=== PATIENT | male | born 1950 | race Caucasian/White ===

== ENCOUNTER 2020-04-26 08:05 | Observation (INO) | payer MEDICARE, OTHER ==
--- NOTE | 2020-04-26 08:06 | NUR ---
PPT TO ROOM VIA WC WITH INITIAL SOMPLAINTS OF UNRESOLVED SCIATIC PAIN. PT STATES "I AM ALSO HERE BECAUSE I HAD CHEST PRESSURE AT 0400 THIS AM". SKIN PWD IN NO DISTRESS, RESP EVEN ADN UNLABORED. NST ON MONITOR.
[2020-04-26 08:35] LABS: HEMOGLOBIN 14.2 g/dl (14.0-18.0); IMMATURE GRANULOCYTES 2.5 % (0.0-5.0); MEAN CELL VOLUME 94.1 fL CALC (80.0-100.0); MEAN CORPUSCULAR HGB 31.1 pG CALC (26.0-32.0); NEUT# 7.45 thou/uL (1.82-7.42); RED BLOOD COUNT 4.57 mill/uL (4.70-6.10)
[2020-04-26] MEDS ORDERED: MEDROL DOSE PAK (08:41)
[2020-04-26] MEDS ORDERED: TRAMADOL HCL50 MG PO (08:42)
[2020-04-26] MEDS ORDERED: CYCLOBENZAPR5 MG PO (08:43)
[2020-04-26] MEDS ORDERED: GABAPENTIN100 MG PO (08:43)
[2020-04-26 08:50] LABS: PROTHROMBIN TIME 10.5 SECONDS (9.0-12.5)
[2020-04-26 08:54] LABS: ALBUMIN 3.7 g/dL (3.2-5.0); ALKALINE PHOSPHATASE 73 u/l (38-126); ANION GAP 10 (6-22 (CALC)); BILIRUBIN, TOTAL 0.6 mg/dL (0.0-1.4); BUN 21 mg/dL (8-23); BUN/CREATININE RATIO 22 (12-20 (CALC)); CARBON DIOXIDE 31 mmol/l (22-30); CHLORIDE 101 mmol/l (95-108); CREATININE 0.9 mg/dL (0.7-1.3); GFR > 60 ML/MIN (>=60 (CALC)); GFR FOR AFR.AMER. > 60 ML/MIN (>=60 (CALC)); POTASSIUM 4.6 mmol/l (3.5-5.1); SGOT/AST 76 u/l (19-48); SODIUM 138 mmol/l (137-146); TOTAL PROTEIN 6.5 g/dL (6.3-8.2)
[2020-04-26] MEDS ORDERED: CARTIA XT240 MG PO (09:00)
[2020-04-26] MEDS ORDERED: LORCET 5-325 MG1 TAB PO (09:00)
[2020-04-26] MEDS ORDERED: CRESTOR40 MG PO (09:01)
[2020-04-26] MEDS ORDERED: NEXIUM40 M1 PO (09:10)
--- NOTE | 2020-04-26 09:10 | NUR ---
PT IS CP FREE IN NO DISTRESS. VSS. PT UPDATED ON POC
[2020-04-26] MEDS ORDERED: ZETIA10 MG PO (09:11)
[2020-04-26] MEDS ORDERED: BUPROPION150 M3 PO (09:11)
--- NOTE | 2020-04-26 10:00 | NUR ---
PT IN RADIOLOGY
--- NOTE | 2020-04-26 10:00 | NUR ---
REPORT TO QUAN BENNETT
--- NOTE | 2020-04-26 11:00 | NUR ---
PT RESTING ON STRETCHER AND IS NOTIFIED OF TRIP TO RADIOLOGY FOR TREATMENTS. PT VERBALIZED UNDERSTANDING.
--- NOTE | 2020-04-26 12:00 | NUR ---
PT NOTIFIED OF PENDING ADMISSION. PT VERBALIZED UNDERSTANDING AND AGREED, ALSO ASKED QUESTIONS THAT WERE ANSWERED. CALL LIGHT WITHIN REACH
--- NOTE | 2020-04-26 13:11 | NUR ---
PT SWABBED FOR COVID 19
--- NOTE | 2020-04-26 13:17 | NUR ---
GAVE REPORT TO ASHLEY
--- NOTE | 2020-04-26 13:20 | NUR ---
PT TRANSPORTED TO [facility] SURG STABLE AND IN NO DISTRESS BY W/C. CARE ASSUMED TO ASHLEY. Admission Note Report Given to: Transported by: X Wheelchair Stretcher Transported with: X Nurse Transporter X Patent IV O2 X Real Estate Broker Associate Location: ICU X MS2
--- NOTE | 2020-04-26 13:24 | NUR ---
PT ARRIVED TO MS2 VIA WHEELCHAIR ACCOMPANIED BY ER NURSE. PT AMBULATED TO BED WITH STEADY GAIT. PT ALERT AND ORIENTED X3, ORIENTED PT TO ROOM AND CALL LIGHT DISCUSSED POC. VITALS OBTAINED, MUSEUM PREPARATOR TO ASSESS PEDAL PULSES AND UNABLE TO LOCATE L PEDAL PULSE. NOTED DISCOLORATION AND SLUGGISH CAPILLARY REFILL TO L FOOT. PT STATES DULL PAIN TO L FOOT 5/10. R FOOT PEDAL PULSE STRONG AND POPLITEAL PULSES STRONG BILAT. DOPPLER USED TO ACCESS L FOOT PEDAL PULSE BUT NONE FOUND. PT HAS +2 PITTING EDEMA TO LLE AND +1 PITTING EDEMA TO RLE. MD NOTIFIED OF L FOOT;COLD,SLUGGISH CAPILLARY REFILL,PALE, AND NO PEDAL PULSE. ORDERS FOR STAT ARTERIAL DOPPLER. RADIOLOGY NOTIFIED. PT AGREES WITH PLAN. ASSESSMENT COMPLETED, CALL LIGHT IN REACH,CONTINUE TO MONITOR.
[2020-04-26 13:34] VITALS: BP 145/95
--- NOTE | 2020-04-26 14:25 | NUR ---
PT TAKEN DOWN TO RADIOLOGY FOR STAT ARTERIAL ULTRASOUND.
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
--- NOTE | 2020-04-26 15:17 | NUR ---
SPOKE TO JOVANA FROM [facility] TRANSFER [facility], IS VASCULAR DIRECTOR [facility] TODAY. JOVANA TO CALL BACK WITH BED.
--- NOTE | 2020-04-26 15:32 | NUR ---
CALLED [facility] REGARDING TRANSFER OF THIS PT. SPOKE TO CIERA AND GAVE HER THE INFORMATION OF THE PT. ALSO TRANSFERRED CALL TO NURSE HUDSON MADSEN FOR REPORT OF PT.
--- NOTE | 2020-04-26 16:11 | NUR ---
RECEIVED CALL FROM JOVANA WITH ROOM ASSIGNMENT, AND RECOMMENDS PT TO TRANPORT VIA FLIGHT. DISCUSSED WITH PT AND HE DECLINED TO FLY DUE TO COST. DISCUSSED WITH PT THE SEVERITY OF HIS CONDITION, PT CONTINUES TO REFUSE AIR TRANSPORT. CHILD NEUROLOGIST TO NOTIFY
[2020-04-26 16:20] VITALS: BP 138/83
--- NOTE | 2020-04-26 16:30 | NUR ---
CALLED [facility] REGARDING TRANSFER OF PT TO [facility]. SPOKE TO WADE. WAS GIVEN ROOM NUMBER BY NURSE WHICH IS [id number]. WAS ALSO TOLD TO LET THEM KNOW TO DO LIGHTS AND SIRENS FOR TRANSFER. WAS GIVEN THE APPROXIMATELY 30 MINUTES FOR PICKUP
--- NOTE | 2020-04-26 16:33 | NUR ---
SPOKE WITH REGARDING PT REFUSING TO FLY TO [place]. OK FOR PT TO GO VIA [employer] WITH LIGHTS AND SIRENS. PT SIGNED CONSENT FOR TRANSPORT. CALL LIGHT IN REACH,CONTINUE TO MONITOR.
--- NOTE | 2020-04-26 16:53 | NUR ---
[facility] ARRIVED TO TRANPORT PT TO [facility]
--- NOTE | 2020-04-26 17:03 | NUR ---
Discharge instructions given. Patient verbalizes understanding of same. Discharged in stable condition via Medical Transport to [facility] with staff. All belongings sent with pt.
--- NOTE | 2020-04-26 17:10 | NUR ---
REPORT CALLED TO SHIRA AT [facility] [phone] TO [phone].
--- NOTE | 2020-04-28 10:02 | NUR ---
04/26/20 PT note Patient was screened for PT intervention and no intervention is necessary at this time
== END 2020-04-26 17:03 | disposition short-term general hospital (02) ==
LOC: ED 08:05 → ED-I 12:37 → ED 12:46 → MS2 12:47
PROVIDERS: Student in an Organized Health Care Education/Training Program; ADMIT Internal Medicine; ATTEND Internal Medicine
DX: I82.412 Acute embolism and thrombosis of left femoral vein (principal); I82.432 Acute embolism and thrombosis of left popliteal vein; I77.1 Stricture of artery; R07.9 Chest pain, unspecified; I10 Essential (primary) hypertension; E78.5 Hyperlipidemia, unspecified; M54.42 Lumbago with sciatica, left side; Z11.59 Encounter for screening for other viral diseases
CPT/HCPCS: G0378; J1650; Q9967

== ENCOUNTER 2020-11-28 17:09 | Emergency (ER) | payer MEDICARE, OTHER ==
[~2020-11-28] VITALS: Ht 180.3 cm; Wt 84.0 kg
[~2020-11-28 17:09] MED LIST: BUPROPION150 M3 PO; CARTIA XT240 MG PO; CRESTOR40 MG PO; CYCLOBENZAPR5 MG PO; GABAPENTIN100 MG PO; LORCET 5-325 MG1 TAB PO; MEDROL DOSE PAK; NEXIUM40 M1 PO; TRAMADOL HCL50 MG PO; ZETIA10 MG PO
[2020-11-28] MEDS ORDERED: XARELTO10 MG PO (18:02)
[2020-11-28 18:33] LABS: HEMATOCRIT 41.7 % (39.0-50.0); HEMOGLOBIN 13.8 g/dl (14.0-18.0); IMMATURE GRANULOCYTES 0.4 % (0.0-5.0); MEAN CELL VOLUME 92.9 fL CALC (80.0-100.0); MEAN CORPUSCULAR HGB 30.7 pG CALC (26.0-32.0); MEAN CORPUSCULAR HGB CONC 33.1 g/dL CAL (32.0-36.0); NEUT# 2.51 thou/uL (1.82-7.42); RED BLOOD COUNT 4.49 mill/uL (4.70-6.10); RED CELL DISTRI WIDTH 12.7 % (11.5-15.5)
[2020-11-28 18:35] LABS: URINE BILIRUBIN - DIPSTICK NEGATIVE (NEGATIVE); URINE BLOOD DIPSTICK NEGATIVE (NEGATIVE); URINE COLOR YELLOW; URINE GLUCOSE - DIPSTICK NEGATIVE (NEGATIVE); URINE KETONE NEGATIVE (NEGATIVE); URINE LEUK ESTERASE NEGATIVE (NEGATIVE); URINE NITRITE - DIPSTICK NEGATIVE (Negative); URINE PH 5.5 (4.5-8.0); URINE PROTEIN - DIPSTICK NEGATIVE (NEG-TRACE); URINE SPECIFIC GRAVITY 1.025; URINE UROBILINOGEN - DIPSTICK 0.2 E.U./dL (0.2)
[2020-11-28 18:52] LABS: ALKALINE PHOSPHATASE 65 u/l (38-126); ANION GAP 14 (6-22 (CALC)); BILIRUBIN, TOTAL 0.5 mg/dL (0.0-1.4); BUN 15 mg/dL (8-23); BUN/CREATININE RATIO 13 (12-20 (CALC)); CARBON DIOXIDE 25 mmol/l (22-30); CHLORIDE 107 mmol/l (95-108); CREATININE 1.1 mg/dL (0.7-1.3); GFR > 60 ML/MIN (>=60 (CALC)); GFR FOR AFR.AMER. > 60 ML/MIN (>=60 (CALC)); POTASSIUM 4.2 mmol/l (3.5-5.1); SGOT/AST 23 u/l (19-48); SODIUM 141 mmol/l (137-146); TOTAL PROTEIN 7.5 g/dL (6.3-8.2)
[2020-11-28 18:53] LABS: ALBUMIN 4.5 g/dL (3.2-5.0)
[2020-11-28 20:00] VITALS: BP 143/73
== END 2020-11-28 20:03 | disposition home or self-care (01) ==
LOC: ED 17:09
DX: K40.90 Unilateral inguinal hernia, without obstruction or gangrene, not specified as recurrent (principal); I10 Essential (primary) hypertension; E78.5 Hyperlipidemia, unspecified; F32.9 Major depressive disorder, single episode, unspecified; Z86.718 Personal history of other venous thrombosis and embolism
CPT/HCPCS: Q9967

== ENCOUNTER 2021-09-20 17:37 | Observation (INO) | payer MEDICARE, OTHER ==
[~2021-09-20] VITALS: Ht 180.3 cm; Wt 86.1 kg
[~2021-09-20 17:37] MED LIST changes: +XARELTO10 MG PO
--- NOTE | 2021-09-20 17:45 | NUR ---
FILIBERTO NOTED TO HAVE BIDIRECTIONAL NYSTAGMUS MD NOTIFIED
[2021-09-20 18:18] LABS: HEMATOCRIT 37.7 % (39.0-50.0); HEMOGLOBIN 12.6 g/dl (14.0-18.0); IMMATURE GRANULOCYTES 0.4 % (0.0-5.0); MEAN CELL VOLUME 94.5 fL CALC (80.0-100.0); MEAN CORPUSCULAR HGB 31.6 pG CALC (26.0-32.0); MEAN CORPUSCULAR HGB CONC 33.4 g/dL CAL (32.0-36.0); NEUT# 4.47 thou/uL (1.82-7.42); RED BLOOD COUNT 3.99 mill/uL (4.70-6.10); RED CELL DISTRI WIDTH 12.3 % (11.5-15.5)
[2021-09-20 18:33] LABS: INTERNATIONAL NORMALIZED RATIO 1.2 RATIO (0.7-1.3); PROTHROMBIN TIME 12.7 SECONDS (9.0-12.5)
[2021-09-20 18:35] LABS: ALKALINE PHOSPHATASE 51 u/l (38-126); ANION GAP 12 (6-22 (CALC)); BUN 15 mg/dL (8-23); BUN/CREATININE RATIO 12 (12-20 (CALC)); CARBON DIOXIDE 24 mmol/l (22-30); CHLORIDE 102 mmol/l (95-108); CREATININE 1.3 mg/dL (0.7-1.3); GFR 54 ML/MIN (>=60 (CALC)); GFR FOR AFR.AMER. > 60 ML/MIN (>=60 (CALC)); LIPASE 42 u/l (23-300); MAGNESIUM 1.8 mg/dL (1.6-2.3); POTASSIUM 3.9 mmol/l (3.5-5.1); SGOT/AST 22 u/l (19-48); SODIUM 135 mmol/l (137-146); TOTAL PROTEIN 6.9 g/dL (6.3-8.2)
[2021-09-20 18:39] LABS: BILIRUBIN, TOTAL 0.9 mg/dL (0.0-1.4)
[2021-09-20 19:03] LABS: URINE BLOOD DIPSTICK NEGATIVE (NEGATIVE); URINE COLOR YELLOW; URINE GLUCOSE - DIPSTICK NEGATIVE (NEGATIVE); URINE KETONE 15 mg/dL (NEGATIVE); URINE LEUK ESTERASE NEGATIVE (NEGATIVE); URINE PROTEIN - DIPSTICK TRACE mg/dL (NEG-TRACE); URINE SPECIFIC GRAVITY 1.025
[2021-09-20 19:04] LABS: URINE BILIRUBIN - DIPSTICK NEGATIVE (NEGATIVE); URINE NITRITE - DIPSTICK NEGATIVE (Negative)
--- NOTE | 2021-09-20 19:05 | NUR ---
RECEIVED REPORT FROM JUVENTINO GLASS. PT RESTING COMFORTABLY AT THIS TIME. DENIES CONCERNS.
--- NOTE | 2021-09-20 19:35 | NUR ---
STROKE PACKET NOT COMPLETED PER DR CARTER
--- NOTE | 2021-09-20 21:10 | NUR ---
ASSISTED TO BR. DENIES DIZZINESS. SPEECH NOTED TO BE CLEAR.
--- NOTE | 2021-09-20 21:15 | NUR ---
PT TAKEN VIA W/C TO M/S ROOM 260 AFTER PLACING ON TELEMETRY. BS REPORT GIVEN.
[2021-09-20 21:18] VITALS: BP 113/60
--- NOTE | 2021-09-20 21:18 | NUR ---
RECEIVED REPORT FROM ED NURSE LAVERN, PATIENT TRANSPORTED VIA WHEELCHAIR, ASSISTED IN BED, ORIENTED TO ROOM AND CALL LIGHT SYSTEM.
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
[2021-09-21] VITALS: BP 108/63
--- NOTE | 2021-09-21 | NUR ---
PATIENT RESTING WITH EYES CLOSED, BREATHING EVEN UNLABORED CALL LIGHT AT REACH.
[2021-09-21 04:00] VITALS: BP 135/63
--- NOTE | 2021-09-21 04:30 | NUR ---
PATIENT ALERT ORIENTED, PATIENT AMBULATED TO THE BATHROOM, STEADY GAIT, AND ASSISTED BACK IN BED.
[2021-09-21 05:59] LABS: HEMATOCRIT 38.5 % (39.0-50.0); HEMOGLOBIN 12.6 g/dl (14.0-18.0); MEAN CORPUSCULAR HGB 31.4 pG CALC (26.0-32.0); MEAN CORPUSCULAR HGB CONC 32.7 g/dL CAL (32.0-36.0); RED BLOOD COUNT 4.01 mill/uL (4.70-6.10); RED CELL DISTRI WIDTH 12.5 % (11.5-15.5)
[2021-09-21 06:22] LABS: ANION GAP 10 (6-22 (CALC)); BUN 13 mg/dL (8-23); BUN/CREATININE RATIO 11 (12-20 (CALC)); CALCULATED LDLCHOLESTEROL 34 mg/dL (62-129 (CALC)); CARBON DIOXIDE 26 mmol/l (22-30); CHLORIDE 107 mmol/l (95-108); CHOLESTEROL HDL RATIO 2.4 (<4.4 (CALC)); CREATININE 1.2 mg/dL (0.7-1.3); GFR 60 ML/MIN (>=60 (CALC)); GFR FOR AFR.AMER. > 60 ML/MIN (>=60 (CALC)); HDL CHOLESTEROL 30 mg/dL (>=40); POTASSIUM 4.4 mmol/l (3.5-5.1); SODIUM 138 mmol/l (137-146); TOTAL CHOLESTEROL 73 mg/dl (0-199); TOTAL TRIGLYCERIDES 46 mg/dl (30-149); VLDL CHOLESTROL 9 mg/dl (0-38 (CALC))
[2021-09-21 07:10] VITALS: BP 133/64
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
--- NOTE | 2021-09-21 09:25 | NUR ---
PATIENT TAKEN DOWN TO MRI VIA WHEELCHAIR AT THIS TIME.
--- NOTE | 2021-09-21 10:30 | NUR ---
PATIENT RETURNED BACK UP FROM MRI VIA WHEELCHAIR AND RECONNECTED ON TELE VIA THIS NURSE AT THIS TIME. DR. LOWERY AND MOISE DYER ARPN IN TO SEE PATIENT AT THIS TIME.
--- NOTE | 2021-09-21 10:42 | NUR ---
Attempted to see patient at 9:45AM. Patient having MRI completed. Will re-attempt later today as schedule allows.
[2021-09-21 11:04] VITALS: BP 139/67
--- NOTE | 2021-09-21 12:07 | NUR ---
PATIENT D/C AT THIS TIME. IV REMOVED TIP INTACT TELE MONITOR REMOVED AND ED NOTIFIED. PATIENT VERBALIZES UNDERSTANDING OF D/C INSTRUCTIONS AT THIS TIME. CALL LIGHT WITHIN REACH WAITING ON RIDE TO GO HOME.
--- NOTE | 2021-09-21 12:20 | NUR ---
Discharge instructions given. Patient verbalizes understanding of same. Discharged in stable condition via Wheelchair to Home with *Other. All belongings sent with pt.
== END 2021-09-21 12:20 | disposition home or self-care (01) ==
LOC: ED 17:37 → ED-I 20:00 → ED 20:17 → MS2 20:18
PROVIDERS: Family Medicine; Nurse Practitioner; ADMIT Internal Medicine; ATTEND Internal Medicine
DX: G45.9 Transient cerebral ischemic attack, unspecified (principal); R50.9 Fever, unspecified; I48.91 Unspecified atrial fibrillation; I25.10 Atherosclerotic heart disease of native coronary artery without angina pectoris; E78.5 Hyperlipidemia, unspecified; K21.9 Gastro-esophageal reflux disease without esophagitis; G89.29 Other chronic pain; M54.2 Cervicalgia; F32.A Depression, unspecified; G62.9 Polyneuropathy, unspecified; Z85.46 Personal history of malignant neoplasm of prostate; Z86.718 Personal history of other venous thrombosis and embolism; Z20.822 Contact with and (suspected) exposure to COVID-19
CPT/HCPCS: Q9967

== ENCOUNTER 2022-09-30 14:31 | Emergency (ER) | payer MEDICARE, OTHER ==
[~2022-09-30] VITALS: Ht 180.3 cm; Wt 84.0 kg
[2022-09-30 14:36] VITALS: BP 130/70
[2022-09-30] MEDS ORDERED: CIPROFLOXACN500 MG PO (14:54)
[2022-09-30] MEDS ORDERED: FLOXIN OTIC0.3 % OS (14:54)
[2022-09-30 15:00] VITALS: BP 114/65
[2022-09-30] MEDS ORDERED: FLOXIN OTIC0.3 % AS (15:04)
== END 2022-09-30 15:04 | disposition home or self-care (01) ==
LOC: ED 14:31
DX: H60.92 Unspecified otitis externa, left ear (principal); I10 Essential (primary) hypertension; I25.10 Atherosclerotic heart disease of native coronary artery without angina pectoris; I48.91 Unspecified atrial fibrillation; F32.A Depression, unspecified; E78.5 Hyperlipidemia, unspecified; Z86.718 Personal history of other venous thrombosis and embolism

== ENCOUNTER 2022-10-06 13:11 | Emergency (ER) | payer MEDICARE, OTHER ==
[~2022-10-06] VITALS: Ht 180.3 cm; Wt 81.8 kg
[2022-10-06] VITALS (7 sets, daily range): BP systolic 105–122; BP diastolic 69–81
[~2022-10-06 13:11] MED LIST changes: +CIPROFLOXACN500 MG PO; +FLOXIN OTIC0.3 % AS; +FLOXIN OTIC0.3 % OS
[2022-10-06] MEDS ORDERED: LEVAQUIN750 M1 PO ×2 (14:16→14:17)
== END 2022-10-06 14:39 | disposition home or self-care (01) ==
LOC: ED 13:11
DX: H60.12 Cellulitis of left external ear (principal); I10 Essential (primary) hypertension; I25.10 Atherosclerotic heart disease of native coronary artery without angina pectoris; F32.A Depression, unspecified; K21.9 Gastro-esophageal reflux disease without esophagitis; I48.91 Unspecified atrial fibrillation; E78.5 Hyperlipidemia, unspecified; Z86.718 Personal history of other venous thrombosis and embolism

== ENCOUNTER 2022-10-14 11:13 | Emergency (ER) | payer MEDICARE, OTHER ==
[~2022-10-14] VITALS: Ht 180.3 cm; Wt 80.9 kg
[~2022-10-14 11:13] MED LIST changes: +LEVAQUIN750 M1 PO
[2022-10-14 14:24] VITALS: BP 124/78
== END 2022-10-14 14:24 | disposition home or self-care (01) ==
LOC: ED 11:13
DX: H92.02 Otalgia, left ear (principal); I10 Essential (primary) hypertension; I25.10 Atherosclerotic heart disease of native coronary artery without angina pectoris; F32.A Depression, unspecified; K21.9 Gastro-esophageal reflux disease without esophagitis; I48.91 Unspecified atrial fibrillation; E78.5 Hyperlipidemia, unspecified; Z86.718 Personal history of other venous thrombosis and embolism

== ENCOUNTER 2023-05-14 11:01 | Emergency (ER) | payer MEDICARE, OTHER ==
[~2023-05-14] VITALS: Ht 180.3 cm; Wt 82.0 kg
[2023-05-14 11:06] VITALS: BP 135/79
[2023-05-14 11:15] VITALS: BP 105/68
[2023-05-14] MEDS ORDERED: FLOXIN OTIC0.3 % AS (11:15)
[2023-05-14] MEDS ORDERED: ZPAK PO (11:15)
[2023-05-14 11:48] VITALS: BP 135/79
== END 2023-05-14 11:40 | disposition home or self-care (01) ==
LOC: ED 11:01
DX: J02.9 Acute pharyngitis, unspecified (principal); Z85.46 Personal history of malignant neoplasm of prostate; I10 Essential (primary) hypertension; I25.10 Atherosclerotic heart disease of native coronary artery without angina pectoris; F32.A Depression, unspecified; K21.9 Gastro-esophageal reflux disease without esophagitis; I48.91 Unspecified atrial fibrillation; E78.5 Hyperlipidemia, unspecified; H60.92 Unspecified otitis externa, left ear